=== PATIENT | male | born 1995 | race Two or more races ===

== ENCOUNTER 2020-01-19 07:34 | Day surgery (SDC) | payer OTHER ==
[~2020-01-19 07:34] MED LIST: CEFAZOLIN 1 GM/D5W RTU 0 GM/0 ML RTUPB IV ONE; CEFAZOLIN 2 GM/D5W RTU 2 GM/50 ML RTUPB IV ONE; CEFAZOLIN 2 GM/D5W RTU 2 GM/50 ML RTUPB IV PRN; DEXAMETHASONE SOD PHOSPHATE INJ 4 MG/1 ML VIAL ONE; FENTANYL CITRATE INJ/PF 100 MCG/2 ML AMPUL ONE; FENTANYL CITRATE INJ/PF 250 MCG/5 ML AMPULE ONE; LACTATED RINGERS 1000 ML IV PRN; LIDOCAINE 0.5% INJ-PF (5 MG/ML) 50 ML SDV SUBCUT PRN; MIDAZOLAM 2 MG/2 ML INJ ONE; ONDANSETRON HCL INJ/PF 4 MG/2 ML SDV ONE; PROPOFOL INJ 200 MG/20 ML VIAL IV ONE
[2020-01-19] MEDS ORDERED: ROPIVACAINE HCL 0.5% INJ/PF (5 MG/1 ML) 30 ML SDV ONE (08:04)
[2020-01-19] MEDS ORDERED: FENTANYL CITRATE INJ/PF 100 MCG/2 ML AMPUL ONE (08:25)
[2020-01-19] MEDS ORDERED: MIDAZOLAM 2 MG/2 ML INJ ONE (08:25)
[2020-01-19] MEDS ORDERED: LIDOCAINE 2% INJ-PF (100 MG/5 ML) SYRINGE ONE (08:38)
[2020-01-19] MEDS ORDERED: BUPIVACAINE HCL 0.5 % INJ/PF 30 ML SDV ONE (08:48)
[2020-01-19] MEDS ORDERED: MORPHINE SULFATE 10 MG/ML INJ IV PRN (10:01)
[2020-01-19] MEDS ORDERED: MEPERIDINE HCL/PF INJ 25 MG/1 ML DISP.SYRIN IV PRN (10:01)
[2020-01-19] MEDS ORDERED: FENTANYL CITRATE INJ/PF 100 MCG/2 ML AMPUL IV PRN ×3 (10:01)
[2020-01-19] MEDS ORDERED: DIPHENHYDRAMINE HCL 50 MG/ML VIAL IV PRN (10:01)
[2020-01-19] MEDS ORDERED: PROMETHAZINE HCL INJ 25 MG/1 ML VIAL IV PRN ×3 (10:01→11:42)
[2020-01-19] MEDS ORDERED: ONDANSETRON HCL INJ/PF 4 MG/2 ML SDV IV PRN ×2 (10:01→11:41)
[2020-01-19] MEDS ORDERED: SUGAMMADEX SODIUM 200 MG/2 ML SDV IV ONE (10:26)
--- NOTE | 2020-01-19 11:03 | Operative Report ---
Operative Report DATE OF SURGERY: 01/19/20 Operative Report: The patient was seen by me in the preoperative holding area and his right upper extremity was marked with an indelible pen. He received a regional interscalene block from the anesthesia team. He was taken to the operating room placed supine on the operating room table where general anesthesia was induced without any apparent complication. He was then repositioned in the lateral decubitus position with his bony prominences padded and an axillary roll was placed. He was prepped and draped in the normal sterile orthopedic fashion a timeout for safety was taken in which we identified the correct patient, the correct side, correct procedure and that we had all necessary equipment. It was also verified that he had received preoperative Ancef prior to the incision. Once all parties agreed we then proceeded with the case. I made a standard posterior arthroscopy portal with an 11 blade introduced the arthroscope into the joint without difficulty. I began the diagnostic arthroscopy localizing my anterior portal with a spinal needle. An Arthrex purple cannula was then inserted anteriorly to aid with diagnostic arthroscopy. Immediately a superior labral tear corresponding with the patient's preoperative MRI was visualized. There was synovitis involving the biceps tendon. This labral tear can be seen on surgical image #1 and #8. The rest of the labrum was visualized, probed and noted to be intact from the 1 o'clock position anteriorly, and around back up to the 11 o'clock position posteriorly. Intact labrum can be visualized on pictures 2 through 6 with the superior posterior extent of the SLAP visualized on picture 8. The biceps tendon was cut utilizing arthroscopic scissors. Hemostasis was achieved utilizing a wand. The cut biceps tendon and stable superior labrum is seen on image #9. The rest of the diagnostic arthroscopy noted no significant intra-articular findings. The instruments were then removed and I began the open portion of the case. Palpated the crossing pectoralis major tendon and made a standard 2 cm incision centered over this level on the anterior arm near the axilla. Skin was incised sharply with a 15 blade, subcutaneous tissue was dissected with Metzenbaum scissors. I palpated bluntly down onto the anterior humerus at the proximal biceps level palpating the bicipital groove. The biceps tendon was removed out of the surgical incision. It was noted to be markedly synovitic. It was whipstitched using an Arthrex fiber loop beginning at the musculotendinous junction and proceeding approximately approximately 2 cm. A locking construct was made by passing 1 of the loops back through the tendon. The free ends were cut and loaded onto the biceps button and 1 of the ends was passed back through the tendon again to create a locking construct with regard to the button. At the level of the crossing pectoralis major tendon at the bottom of the bicipital groove the bone was freshened using a curette, the drill pin was placed through the near cortex and the button was placed intraosseously. Sutures were tensioned bringing the biceps tendon onto the face of the anterior humerus and the tendon was secured utilizing a surgeon's knot and alternating half hitches. The wound was then copiously irrigated with sterile saline. The surgical incision was covered well by the block as the patient had no measurable response to this part of the procedure, therefore no local was used. Subcu taneous tissue was closed with interrupted 2-0 Monocryl, the skin was closed with interrupted 3-0 nylon stitches, the portal sites were closed with 3-0 nylon interrupted stitches. Sterile occlusive dressings were applied and the patient was placed in a shoulder immobilizer with a Cryo/Cuff. He awoke from general anesthesia without any apparent complication was subsequently transferred to the PACU in good condition where he will remain until he meets the criteria for same-day surgery discharge. Note dictated using [employer] software, please excuse any errors. PREOPERATIVE DIAGNOSIS: Right shoulder SLAP tear, bicipital tenosynovitis POSTOPERATIVE DIAGNOSIS: Same OPERATION: Right shoulder arthroscopy, open subpectoral biceps tenodesis SURGEON: BETSY MCFARLANE ANESTHESIA: GA TISSUE REMOVED OR ALTERED: Open subpectoral biceps tenodesis COMPLICATIONS: None ESTIMATED BLOOD LOSS: 10 INTRAOPERATIVE FINDINGS: See operative note
[2020-01-19] MEDS: MEPERIDINE HCL/PF INJ 25 MG/1 ML DISP.SYRIN ONE ×2 (11:15→11:20)
[2020-01-19] MEDS ORDERED: OXYCODONE HCL IR 5 MG TABLET PO PRN ×2 (11:40)
[2020-01-19] MEDS ORDERED: ACETAMINOPHEN 325 MG TABLET PO PRN (11:40)
[2020-01-19] MEDS ORDERED: DIPHENHYDRAMINE HCL 25 MG CAPSULE PO PRN (11:41)
[2020-01-19] MEDS ORDERED: KETOROLAC TROMETHAMINE INJ/PF 30 MG/1 ML SDV IV SCH (12:00)
[2020-01-19] MEDS ORDERED: OXYCODONE HCL IR 5 MG TABLET ONE ×2 (12:03→12:14)
[2020-01-19] MEDS ORDERED: ONDANSETRON HCL INJ/PF 4 MG/2 ML SDV ONE (12:24)
[2020-01-19 13:50] VITALS: BP 143/72
== END 2020-01-19 13:15 | disposition home or self-care (01) ==
LOC: OROUT 07:34
PROVIDERS: ATTEND Orthopaedic Surgery
DX: S43.431A Superior glenoid labrum lesion of right shoulder, initial encounter (principal); X58.XXXA Exposure to other specified factors, initial encounter; M75.21 Bicipital tendinitis, right shoulder; Z03.818 Encounter for observation for suspected exposure to other biological agents ruled out
CPT/HCPCS: 87635; 64415; 76942; 01630; 29807; 23430; C1713; J2795; J2250; J1100; J3010; J2001; J2175; J2405; J2704; J0690; J3490; C9803; 1630